=== PATIENT | male | born 1980 | race Caucasian/White ===

== ENCOUNTER 2019-06-29 13:25 | Emergency (ER) | payer BC, OTHER ==
[~2019-06-29] VITALS: Ht 190.5 cm; Wt 146.5 kg
[~2019-06-29 13:25] MED LIST: no home meds
[2019-06-29] MEDS ORDERED: LISI20TA19 (14:55)
[2019-06-29] MEDS ORDERED: LABE300T2 (14:55)
[2019-06-29] MEDS ORDERED: AMLO10TA5 (14:55)
[2019-06-29] MEDS ORDERED: NS 1,000 ML IV ONE (15:00)
[2019-06-29 15:32] LABS: BASO # 0.1 10^3/uL (0.0-0.2); BASO % 0.7 % (0.0-1.0); EOS # 0.2 10^3/uL (0.0-0.5); EOS % 2.1 % (0.0-3.0); HEMATOCRIT 38.3 % (42.0-52.0); HEMOGLOBIN 13.3 g/dl (13.5-17.5); LYMPH % 23.1 % (24.0-44.0); MEAN CORPUSCULAR HGB CONC 34.7 g/dl (32.0-36.5); MEAN CORPUSCULAR VOLUME 86.3 fl (80.0-96.0); MONO # 0.7 10^3/uL (0.0-0.8); MONO % 8.5 % (0.0-5.0); NEUTROPHILS # 5.6 10^3/uL (1.5-8.5); NEUTROPHILS % 65.1 % (36.0-66.0); PLATELET COUNT, AUTOMATED 206 10^3/uL (150-450); RED BLOOD COUNT 4.44 10^6/uL (4.30-6.10); WHITE BLOOD COUNT 8.5 10^3/uL (4.0-10.0)
[2019-06-29 15:48] LABS: INR 1.14; PROTHROMBIN TIME 14.4 SECONDS (11.8-14.0)
--- NOTE | 2019-06-29 15:55 | REP ---
CT BRAIN WITHOUT IV CONTRAST: CT brain performed without IV contrast. Coronal reconstruction images are performed. The ventricles are normal in size and position with no midline shift or mass effect. Urbano/white differentiation is well maintained. There is no acute hemorrhage. There is no extra-axial fluid collection. Bone window examination is unremarkable. Mastoid air cells are well aerated. There is no opacification of the visualized paranasal sinuses. IMPRESSION: Negative noncontrast CT brain. Electronically Signed by Randy Urbano MD 06/29/2019 08:22 P
[2019-06-29 15:59] LABS: HEMOGLOBIN A1c 6.6 %
[2019-06-29 16:11] LABS: BLOOD UREA NITROGEN 21 MG/DL (7-18); CALCIUM LEVEL 8.6 MG/DL (8.5-10.1); CARBON DIOXIDE LEVEL 30 MEQ/L (21-32); CHLORIDE LEVEL 101 MEQ/L (98-107); CK-MB VALUE MASS 2.5 NG/ML (<3.6); CPK CREATINE PHOSPHOKINASE 323 U/L (39-308); CREATININE FOR GFR 1.44 MG/DL (0.70-1.30); GLOMERULAR FILTRATION RATE 58.1 (>60); GLUCOSE, FASTING 259 MG/DL (70-100); MB/CK RELATIVE INDEX 0.77 (< OR =4); POTASSIUM SERUM 3.6 MEQ/L (3.5-5.1); SODIUM LEVEL 138 MEQ/L (136-145); TROPONIN I < 0.02 NG/ML (< 0.10)
[2019-06-29 16:12] LABS: ETHYL ALCOHOL (ETHANOL) < 0.003 % (0.000-0.010)
[2019-06-29] MEDS ORDERED: metFORMIN (GLUCOPHAGE) 500 MG TAB PO ONE (16:45)
[2019-06-29] MEDS ORDERED: METF500T13 PO (17:05)
[2019-06-29 17:25] VITALS: BP 125/68
--- NOTE | 2019-06-30 07:59 | ECGEPIP ---
[facility] - ED Test Date: 2019-06-29 Pat Name: ISABEL RAYMOND Department: Room: - Gender: Male [employer]: DEBRA : 1980 Requested By: Jeffy Mart Order Number: [id number] Reading MD: Jeffy Quijano Measurements Intervals [place] Rate: 76 P: 27 NV: 184 QRS: -17 QRSD: 124 T: 56 QT: 384 QTc: 432 Interpretive Statements SINUS RHYTHM MODERATE INTRAVENTRICULAR CONDUCTION DELAY VOLTAGE CRITERIA FOR LVH NONSPECIFIC T-WAVE ABNORMALITY SIMILAR TO 05/15/14 Electronically Signed on 06-30-2019 7:59:52 EST by Jeffy Quijano
== END 2019-06-29 17:49 | disposition home or self-care (01) ==
LOC: M ED 13:25
DX: R55 Syncope and collapse (principal); E11.9 Type 2 diabetes mellitus without complications; I45.89 Other specified conduction disorders; I10 Essential (primary) hypertension
CPT/HCPCS: 70450; 80048; 82550; 82553; 83036; 83735; 84443; 84484; 85025; 85610; 93005; 93041; 94760; 96360; 99285; G0480

== ENCOUNTER 2019-09-22 07:41 | Emergency (ER) | payer OTHER ==
[~2019-09-22] VITALS: Ht 190.5 cm; Wt 140.0 kg
[~2019-09-22 07:41] MED LIST changes: +AMLO10TA5; +LABE300T2; +LISI20TA19; +METF500T13 PO
[2019-09-22] MEDS ORDERED: dexameTHASONE 4 MG/ML 1ML VIAL (J1100 PER 1MG) As Ordered ONE (08:14)
[2019-09-22] MEDS ORDERED: dexameTHASONE 20MG/5ML VIAL (J1100 PER 1MG) IV ONE (08:15)
[2019-09-22] MEDS ORDERED: NS 1,000 ML IV ONE (08:15)
[2019-09-22] MEDS ORDERED: FAMOTIDINE INJ 20MG/2ML VIAL (S0028 PER 1) As Ordered ONE (08:19)
[2019-09-22] MEDS ORDERED: diphenhydrAMINE 50MG/ML VIAL (J1200) As Ordered ONE (08:19)
[2019-09-22] MEDS ORDERED: diphenhydrAMINE 50MG/ML VIAL (J1200) IV ONE (08:30)
[2019-09-22] MEDS ORDERED: FAMOTIDINE INJ 20MG/2ML VIAL (S0028 PER 1) IVP ONE (08:30)
[2019-09-22 08:36] LABS: BASO # 0.1 10^3/uL (0.0-0.2); BASO % 0.5 % (0.0-1.0); EOS # 0.3 10^3/uL (0.0-0.5); EOS % 2.5 % (0.0-3.0); HEMATOCRIT 41.8 % (42.0-52.0); HEMOGLOBIN 14.6 g/dl (13.5-17.5); LYMPH # 1.3 10^3/uL (1.5-5.0); LYMPH % 12.9 % (24.0-44.0); MEAN CORPUSCULAR HEMOGLOBIN 30.2 pg (27.0-33.0); MEAN CORPUSCULAR HGB CONC 34.9 g/dl (32.0-36.5); MEAN CORPUSCULAR VOLUME 86.4 fl (80.0-96.0); MONO % 9.3 % (0.0-5.0); NEUTROPHILS # 7.6 10^3/uL (1.5-8.5); NEUTROPHILS % 74.1 % (36.0-66.0); PLATELET COUNT, AUTOMATED 192 10^3/uL (150-450); RED BLOOD COUNT 4.84 10^6/uL (4.30-6.10); WHITE BLOOD COUNT 10.3 10^3/uL (4.0-10.0)
[2019-09-22 08:57] LABS: ERYTHROCYTE SEDIMENTATION RATE 12 mm/hr (0-15)
[2019-09-22 09:07] LABS: BLOOD UREA NITROGEN 14 MG/DL (7-18); C REACTIVE PROTEIN QUANTITATIV 3.19 MG/DL (0.00-0.30); CALCIUM LEVEL 8.7 MG/DL (8.5-10.1); CARBON DIOXIDE LEVEL 27 MEQ/L (21-32); CHLORIDE LEVEL 106 MEQ/L (98-107); CREATININE FOR GFR 1.02 MG/DL (0.70-1.30); GLOMERULAR FILTRATION RATE > 60.0 (>60); GLUCOSE, FASTING 207 MG/DL (70-100); POTASSIUM SERUM 3.6 MEQ/L (3.5-5.1); SODIUM LEVEL 140 MEQ/L (136-145)
[2019-09-22] MEDS ORDERED: FAMO20TA PO (11:11)
[2019-09-22] MEDS ORDERED: PRED20TA PO (11:11)
[2019-09-22 11:15] VITALS: BP 151/86
== END 2019-09-22 11:23 | disposition home or self-care (01) ==
LOC: M ED 07:41
DX: T78.3XXA Angioneurotic edema, initial encounter (principal); Y92.89 Other specified places as the place of occurrence of the external cause; R00.0 Tachycardia, unspecified; E11.9 Type 2 diabetes mellitus without complications; I10 Essential (primary) hypertension; G47.33 Obstructive sleep apnea (adult) (pediatric); Z87.891 Personal history of nicotine dependence; Z79.899 Other long term (current) drug therapy; Z79.84 Long term (current) use of oral hypoglycemic drugs
CPT/HCPCS: 36415; 80048; 85025; 85652; 86140; 86850; 86900; 86901; 93041; 94760; 96361; 96374; 96375; 99285; J1100; J1200

== ENCOUNTER → 2020-04-29 | Outpatient (CLI) | payer OTHER ==
[~2020-04-29] MED LIST changes: -AMLO10TA5; +AMLO1TAB25; +FAMO20TA PO; -LISI20TA19; +LISI20TA35; +PRED20TA PO
== END ==
LOC: M LABSMTC 09:27
PROVIDERS: ATTEND Orthopaedic Surgery
DX: Z01.812 Encounter for preprocedural laboratory examination (principal); Z20.828 Contact with and (suspected) exposure to other viral communicable diseases

== ENCOUNTER → 2021-01-01 | Outpatient (REF) | payer OTHER | LOC: M LAB REF 17:19 | PROVIDERS: ATTEND Dermatology | DX: C43.59 Malignant melanoma of other part of trunk (principal) ==

== ENCOUNTER → 2023-07-28 | Outpatient (CLI) | payer BC ==
[~2023-07-28] MED LIST changes: -LABE300T2; +LABE300T28
[2023-07-28 10:36] LABS: BLOOD UREA NITROGEN 17 MG/DL (9-23); CALCIUM LEVEL 9.3 MG/DL (8.5-10.1); CARBON DIOXIDE LEVEL 30 MMOL/L (20-31); CHLORIDE LEVEL 103 MMOL/L (98-107); CREATININE FOR GFR 0.89 MG/DL (0.70-1.30); GLOMERULAR FILTRATION RATE > 60.0 (>60); GLUCOSE, FASTING 216 MG/DL (60-100); POTASSIUM SERUM 3.4 MMOL/L (3.5-5.1); SODIUM LEVEL 140 MMOL/L (136-145)
== END ==
LOC: M LAB 09:10
PROVIDERS: ATTEND Nurse Practitioner Family
DX: I10 Essential (primary) hypertension (principal)

== ENCOUNTER → 2023-07-28 | Outpatient (CLI) | payer BC ==
[2023-07-28 10:34] LABS: PSA SCREENING 0.49 NG/ML (< 4.00)
[2023-07-28 10:38] LABS: FOLLICLE STIMULATING HORMONE 8.6 mIU/ML (1.4-18.1)
[2023-07-28 10:39] LABS: LUTEINIZING HORMONE 8.4 mIU/ML (1.5-9.3)
[2023-07-28 10:40] LABS: ESTRADIOL 36.5 PG/ML (<39.8)
== END ==
LOC: M LAB 09:13
PROVIDERS: ATTEND Physician Assistant
DX: E29.1 Testicular hypofunction (principal)

== ENCOUNTER → 2023-10-28 | Outpatient (CLI) | payer BC | LOC: M WUC 14:59 | PROVIDERS: ATTEND Student in an Organized Health Care Education/Training Program | DX: M54.50 Low back pain, unspecified (principal) ==